=== PATIENT | female | born 1990 | race Two or more races ===

== ENCOUNTER 2017-11-24 14:01 | Emergency (ER) | payer OTHER ==
--- NOTE | 2017-11-24 14:29 | PDOC ---
Rapid Medical Evaluation Medical Evaluation: 11/24/17 14:26 I have performed a brief in-person evaluation of this patient. The patient presents with a chief complaint of: (s/p 1 spon AB) @ 8 weeks w/ n/v and weakness since yesterday. No abd pain or vag bleed Pertinent physical exam findings:Stable and in NAD w/ stable vitals I have ordered the following:nothing (as no LIVESTOCK CARETAKER/tech at triage) The patient will proceed to the ED for further evaluation. 11/24/17 14:31
[2017-11-24 14:33] VITALS: BP 127/63; PULSE 61; TEMP 98.2; BMI 20.8
[2017-11-24] MEDS ORDERED: SODIUM CHLORIDE 0.9% 500 ML INFUS.BAG IV ONE (15:06)
[2017-11-24] MEDS ORDERED: ONDANSETRON 4 MG/2 ML VIAL IVPUSH ONE (15:10)
[2017-11-24] MEDS ORDERED: ONDANSETRON 4 MG/2 ML VIAL ONE (15:36)
[2017-11-24 15:47] LABS: BASO % 0.4 % (0-2.0); EOS % 2.6 % (0-4.5); HEMATOCRIT 38.6 % (32.4-45.2); HEMOGLOBIN 12.8 GM/dL (10.7-15.3); LYMPH % 11.2 % (8-40); MCH 27.5 pg (25.7-33.7); MCHC 33.2 g/dl (32.0-36.0); MEAN CELL VOLUME 82.8 fl (80-96); MEAN PLT VOLUME 9.5 fl (7.5-11.1); MONO % 5.4 % (3.8-10.2); NEUT % 80.4 % (42.8-82.8); RBC 4.66 M/mm3 (3.60-5.2); RDW 13.5 % (11.6-15.6); WHITE BLOOD COUNT 12.5 K/mm3 (4.0-10.0)
[2017-11-24 16:00] LABS: URINE APPEARANCE SLCLOUDY; URINE BILIRUBIN NEGATIVE (NEGATIVE); URINE BLOOD NEGATIVE (NEGATIVE); URINE COLOR YELLOW; URINE GLUCOSE (UA) NEGATIVE (NEGATIVE); URINE KETONE 1+ (NEGATIVE); URINE LEUK ESTERASE TRACE (NEGATIVE); URINE NITRITE NEGATIVE (NEGATIVE)
[2017-11-24 16:03] LABS: URINE PROTEIN 1+ (NEGATIVE)
[2017-11-24 16:05] LABS: EPI CELLS MODERATE /HPF (FEW); URINE MUCUS MANY
[2017-11-24 16:12] LABS: ALBUMIN 3.5 g/dl (3.4-5.0); ANION GAP 11 (8-16); BILIRUBIN,TOTAL 0.4 mg/dL (0.2-1.0); BLOOD UREA NITROGEN 9 mg/dL (7-18); CHLORIDE 105 mmol/L (98-107); CO2 22 mmol/L (21-32); CREATININE 0.6 mg/dL (0.55-1.02); GLUCOSE,RANDOM 77 mg/dL (74-106); POTASSIUM 4.2 mmol/L (3.5-5.1); SGOT/AST 14 U/L (15-37); SGPT/ALT 27 U/L (12-78); SODIUM 138 mmol/L (136-145); TOT PROT 6.9 g/dl (6.4-8.2)
--- NOTE | 2017-11-24 16:21 | PDOC ---
History of Present Illness - General History Source: Patient Exam Limitations: No Limitations - History of Present Illness Initial Comments: 11/24/17 16:22 The patient is a 27 year old female A1 who is 8 weeks with a significant PMH of asthma who presents to the emergency department with abdominal discomfort, vomiting and generalized weakness beginning approximately yesterday morning. The patient reports being nauseous throughout her and receiving anti-nausea medication and blood work at her SHOE STAINER this past Monday, which she took one dose of that day. She reports receiving a call on Monday morning from the OB office stating that her platelets were low, after which the patient decided to stop her anti-nausea medication. She reports 4 episodes of non-bloody, non-bilious vomiting yesterday and 1 episode today. She reports calling her nurse at the OB office this morning who recommended she present to the ED. She denies any vaginal discharge or bleeding. She denies dysuria or hematuria. The patient denies chest pain, shortness of breath, headache and dizziness. Denies fever, chills, diarrhea and constipation. Denies urinary frequency or urgency. Allergies: NKA Past surgical history: None reported. Social history: No reported cigarette, alcohol, or drug use. PCP: None reported. <Raffi Umanzor - Last Filed: 11/24/17 16:21> <Zhanna Palomo - Last Filed: 11/25/17 08:51> - General Chief Complaint: Nausea/Vomiting Stated Complaint: NAUSEA/VOMITING Time Seen by Provider: 11/24/17 14:29 Past History <Raffi Umanzor - Last Filed: 11/24/17 16:21> - Past Medical History Asthma: Yes CVA: No COPD: No DVT: No - Immunization History Immunization Up to Date: Yes - Suicide/Smoking/Psychosocial Hx Smoking History: Never smoked Have you smoked in the past 12 months: No Information on smoking cessation initiated: No Hx Alcohol Use: No Drug/Substance Use Hx: No Substance Use Type: None <Zhanna Palomo - Last Filed: 11/25/17 08:51> - Past Medical History Allergies/Adverse Reactions: Allergies Allergy/AdvReac Type Severity Reaction Status Date / Time No Known Allergies Allergy Verified 11/24/17 14:30 Home Medications: Ambulatory Orders Metoclopramide HCl [Metoclopramide HCl Odt] 5 mg PO BID PRN #20 tab.rapdis 11/24 Ondansetron HCl [Zofran] 4 mg PO BID PRN #30 tablet 11/24/17 Review of Systems - Review of Systems Able to Perform ROS?: Yes Comments:: 11/24/17 16:22 GENERAL/CONSTITUTIONAL: (+) Generalized weakness. No fever or chills. HEAD, EYES, EARS, NOSE AND THROAT: No change in vision. No ear pain or discharge. No sore throat. CARDIOVASCULAR: No chest pain or shortness of breath. RESPIRATORY: No cough, wheezing, or hemoptysis. GASTROINTESTINAL: (+) Nausea. (+) Vomiting. No diarrhea or constipation. GENITOURINARY: No dysuria, frequency, or change in urination. MUSCULOSKELETAL: No joint or muscle swelling or pain. No neck or back pain. SKIN: No rash NEUROLOGIC: No headache, vertigo, loss of consciousness, or change in strength/ sensation. ENDOCRINE: No increased thirst. No abnormal weight change. HEMATOLOGIC/LYMPHATIC: No anemia, easy bleeding, or history of blood clots. ALLERGIC/IMMUNOLOGIC: No hives or skin allergy. <Raffi Umanzor - Last Filed: 11/24/17 16:21> *Physical Exam - Vital Signs Last Vital Signs Temp Pulse Resp BP Pulse Ox 98.2 F 61 16 127/63 100 11/24/17 14:30 11/24/17 14:30 11/24/17 14:30 11/24/17 14:30 11/24/17 14:30 - Physical Exam Comments: 11/24/17 16:23 GENERAL: Awake, alert, and fully oriented, in no acute distress HEAD: No signs of trauma EYES: PERRLA, EOMI, sclera anicteric, conjunctiva clear ENT: Auricles normal inspection, hearing grossly normal, nares patent, oropharynx clear without exudates. Moist mucosa NECK: Normal ROM, supple, no lymphadenopathy, JVD, or masses LUNGS: Breath sounds equal, clear to auscultation bilaterally. No wheezes, and no crackles HEART: Regular rate and rhythm, normal S1 and S2, no murmurs, rubs or gallops ABDOMEN: Soft, nontender, normoactive bowel sounds. No guarding, no rebound. No masses EXTREMITIES: Normal range of motion, no edema. No clubbing or cyanosis. No cords, erythema, or tenderness NEUROLOGICAL: Cranial nerves II through XII grossly intact. Normal speech, normal gait SKIN: Warm, Dry, normal turgor, no rashes or lesions noted. <Raffi Umanzor - Last Filed: 11/24/17 16:21> - Vital Signs Last Vital Signs Temp Pulse Resp BP Pulse Ox 98.2 F 61 16 127/63 100 11/24/17 14:30 11/24/17 14:30 11/24/17 14:30 11/24/17 14:30 11/24/17 14:30 <Zhanna Palomo - Last Filed: 11/25/17 08:51> ED Treatment Course - LABORATORY CBC & Chemistry Diagram: 11/24/17 15:19 11/24/17 15:19 - ADDITIONAL ORDERS Additional order review: Laboratory Results 11/24/17 15:40 Urine Color Yellow Urine Appearance Slcloudy Urine pH 6.0 Ur Specific [place] 1.032 Urine Protein 1+ H Urine Glucose (UA) Negative Urine Ketones 1+ H Urine Blood Negative Urine Nitrite Negative Urine Bilirubin Negative Urine Urobilinogen 2.0 H Ur Leukocyte Esterase Trace Urine WBC (Auto) 5 Urine RBC (Auto) 1 Ur Epithelial Cells Moderate Urine Mucus Many - Medications Given in the ED: ED Medications Discontinued Medications Generic Name Dose Route Start Last Admin Trade Name Freq PRN Reason Stop Dose Admin Ondansetron HCl 4 mg 11/24/17 15:10 11/24/17 15:45 Zofran Injection IVPUSH 11/24/17 15:11 4 mg ONCE ONE Administration Sodium Chloride 1,000 ml 11/24/17 15:06 11/24/17 15:45 Normal Saline - IV 11/24/17 15:07 1,000 ml ONCE ONE Administration <Raffi Umanzor - Last Filed: 11/24/17 16:21> - LABORATORY CBC & Chemistry Diagram: 11/24/17 15:19 11/24/17 15:19 - ADDITIONAL ORDERS Additional order review: Laboratory Results 11/24/17 15:40 Urine Color Yellow Urine Appearance Slcloudy Urine pH 6.0 Ur Specific [place] 1.032 Urine Protein 1+ H Urine Glucose (UA) Negative Urine Ketones 1+ H Urine Blood Negative Urine Nitrite Negative Urine Bilirubin Negative Urine Urobilinogen 2.0 H Ur Leukocyte Esterase Trace Urine WBC (Auto) 5 Urine RBC (Auto) 1 Ur Epithelial Cells Moderate Urine Mucus Many - Medications Given in the ED: ED Medications Discontinued Medications Generic Name Dose Route Start Last Admin Trade Name Freq PRN Reason Stop Dose Admin Ondansetron HCl 4 mg 11/24/17 15:10 11/24/17 15:45 Zofran Injection IVPUSH 11/24/17 15:11 4 mg ONCE ONE Administration Sodium Chloride 1,000 ml 11/24/17 15:06 11/24/17 15:45 Normal Saline - IV 11/24/17 15:07 1,000 ml ONCE ONE Administration <Zhanna Palomo - Last Filed: 11/25/17 08:51> Medical Decision Making - Medical Decision Making 11/25/17 08:45 Pt presents to the ED complaining of nausea and vomiting that are most consistent with morning sickness. Denies abdominal pain or vaginal bleeding. Will check labs and give IV hydration and nausea control and reassess. 11/25/17 08:50 11/25/17 08:51 <Zhanna Palomo - Last Filed: 11/25/17 08:51> *DC/Admit/Observation/Transfer - Attestations Scribe Attestion: 11/24/17 16:23 Documentation prepared by Raffi Umanzor, acting as phlebotomist medical lab assistant for Zhanna Palomo MD. <Raffi Umanzor - Last Filed: 11/24/17 16:21> - Discharge Dispostion Admit: No <Zhanna Palomo - Last Filed: 11/25/17 08:51> Diagnosis at time of Disposition: Hyperemesis arising during - Discharge Dispostion Disposition: HOME Condition at time of disposition: Stable - Prescriptions Prescriptions: Metoclopramide HCl [Metoclopramide HCl Odt] 5 mg PO BID PRN #20 tab.rapdis PRN Reason: nausea, vomiting Ondansetron HCl [Zofran] 4 mg PO BID PRN #30 tablet PRN Reason: Nausea - Patient Instructions Printed Discharge Instructions: DI for Hyperemesis Gravidarum, DI for Nausea - - Adult Additional Instructions: Ms Tristan Thank you for coming in to the ER today Please take Reglan as prescribed for nausea I will prescribed Zofran, but please check with your gourmet coffee attendant regarding whether you can start taking this Return to the ER for any other concerns or complaints - Post Discharge Activity Forms/Work/School Notes: Back to Work
[2017-11-24 16:28] LABS: ALK PHOS 82 U/L (45-117)
[2017-11-24 17:03] LABS: PLATELET ESTIMATE ADEQUATE
--- NOTE | 2017-11-24 18:27 | PDOC ---
*Physical Exam - Vital Signs Last Vital Signs Temp Pulse Resp BP Pulse Ox 98.2 F 61 16 127/63 100 11/24/17 14:30 11/24/17 14:30 11/24/17 14:30 11/24/17 14:30 11/24/17 14:30 ED Treatment Course - LABORATORY CBC & Chemistry Diagram: 11/24/17 15:19 11/24/17 15:19 - ADDITIONAL ORDERS Additional order review: Laboratory Results 11/24/17 11/24/17 15:40 15:19 Sodium 138 Potassium 4.2 Chloride 105 Carbon Dioxide 22 Anion Gap 11 BUN 9 Creatinine 0.6 Creat Clearance w eGFR > 60 Random Glucose 77 Calcium 9.0 Total Bilirubin 0.4 AST 14 L ALT 27 Alkaline Phosphatase 82 Total Protein 6.9 Albumin 3.5 Beta HCG, Quant 116315.0 Urine Color Yellow Urine Appearance Slcloudy Urine pH 6.0 Ur Specific [place] 1.032 Urine Protein 1+ H Urine Glucose (UA) Negative Urine Ketones 1+ H Urine Blood Negative Urine Nitrite Negative Urine Bilirubin Negative Urine Urobilinogen 2.0 H Ur Leukocyte Esterase Trace Urine WBC (Auto) 5 Urine RBC (Auto) 1 Ur Epithelial Cells Moderate Urine Mucus Many 11/24/17 15:19 RBC 4.66 MCV 82.8 MCHC 33.2 RDW 13.5 MPV 9.5 Neutrophils % 80.4 Lymphocytes % 11.2 Monocytes % 5.4 Eosinophils % 2.6 Basophils % 0.4 - Medications Given in the ED: ED Medications Discontinued Medications Generic Name Dose Route Start Last Admin Trade Name Freq PRN Reason Stop Dose Admin Ondansetron HCl 4 mg 11/24/17 15:10 11/24/17 15:45 Zofran Injection IVPUSH 11/24/17 15:11 4 mg ONCE ONE Administration Sodium Chloride 1,000 ml 11/24/17 15:06 11/24/17 15:45 Normal Saline - IV 11/24/17 15:07 1,000 ml ONCE ONE Administration Medical Decision Making - Medical Decision Making 11/24/17 18:19 27 yo F signed out to me pending platelet count Pt tells me that she is being followed by a hemetologist She has had several blood samples which patient states were significant for platelet clumping She is getting several additional tests Pt was treated with Zofran with improved nausea I have had a conversation with her regarding her anti emetic Pt does not want to continue Diclegis I have explained some of the concernes with Zofran I will prescribe Zofran and Reglan pt will contact her software applications developer regarding which she should take Clinical impression: hyperemesis, initial presentation *DC/Admit/Observation/Transfer Diagnosis at time of Disposition: Hyperemesis arising during - Discharge Dispostion Disposition: HOME Condition at time of disposition: Stable Admit: No - Referrals - Patient Instructions Printed Discharge Instructions: DI for Nausea -- Adult, DI for Hyperemesis Gravidarum Additional Instructions: Ms Tristan Thank you for coming in to the ER today Please take Reglan as prescribed for nausea I will prescribed Zofran, but please check with 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
== END 2017-11-24 19:04 | disposition home or self-care (01) ==
LOC: JER 14:01
PROC: 3E033GC Introduction of Other Therapeutic Substance into Peripheral Vein, Percutaneous Approach (ICD-10-PCS; principal; 2017-11-24)
PROC: 3E0337Z Introduction of Electrolytic and Water Balance Substance into Peripheral Vein, Percutaneous Approach (ICD-10-PCS; 2017-11-24)
DX: O26.891 Other specified pregnancy related conditions, first trimester (principal); Z3A.08 8 weeks gestation of pregnancy; O21.0 Mild hyperemesis gravidarum
CPT/HCPCS: 36415; 80053; 81003; 81015; 84702; 85025; 96361; 96374; 99282-25

== ENCOUNTER 2018-06-15 21:45 | Inpatient (IN) | payer BC, OTHER ==
[2018-06-16 02:42] LABS: BASO % 0.5 % (0-2.0); EOS % 3.1 % (0-4.5); HEMATOCRIT 39.8 % (32.4-45.2); HEMOGLOBIN 13.1 GM/dL (10.7-15.3); LYMPH % 13.2 % (8-40); MCH 27.9 pg (25.7-33.7); MEAN CELL VOLUME 84.8 fl (80-96); MONO % 5.5 % (3.8-10.2); NEUT % 77.7 % (42.8-82.8); RDW 14.5 % (11.6-15.6); WHITE BLOOD COUNT 11.3 K/mm3 (4.0-10.0)
[2018-06-16 03:01] VITALS: BMI 22.6
[2018-06-16 03:03] LABS: INR 0.91 (0.83-1.09); PROTHROMBIN TIME (PATIENT) 10.3 SEC (9.7-13.0)
[2018-06-16 03:04] LABS: ANION GAP 8 MMOL/L (8-16); BLOOD UREA NITROGEN 15 mg/dL (7-18); CALCIUM 8.7 mg/dL (8.5-10.1); CHLORIDE 108 mmol/L (98-107); CO2 22 mmol/L (21-32); CREATININE 0.6 mg/dL (0.55-1.3); GLUCOSE,RANDOM 75 mg/dL (74-106); POTASSIUM 3.8 mmol/L (3.5-5.1); SODIUM 138 mmol/L (136-145)
[2018-06-16 03:39] LABS: PLATELET ESTIMATE DECREASED
[2018-06-16] MEDS: DEXTROSE 5%-LACTATED RINGERS 1,000 ML IV SCH (04:40)
[2018-06-16] MEDS ORDERED: PROMETHAZINE HCL 25 MG/1 ML VIAL IVPB ONE (07:00)
[2018-06-16] MEDS ORDERED: BUTORPHANOL TARTRATE 1 MG/ML VIAL IVPB ONE ×2 (07:00→11:15)
[2018-06-16] MEDS ORDERED: OXYTOCIN 20 UNITS in 0.9% NS 20 UNIT/1,000 ML INFUS.BAG IV ONE (07:24)
[2018-06-16] MEDS ORDERED: LIDOCAINE HCL 1% PRESERVATIVE FREE - 30ML VIAL ONE (07:24)
--- NOTE | 2018-06-16 08:07 | HP ---
Past Medical History - Primary Care Physician PCP:: Casper Sal - Admission Chief Complaint: 27yo P1 with at EGA 37 5/7wk admitted in spontaneous labor. 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: Alzheimer's, CVA, Dementia, Migraine, Multiple Sclerosis, Peripheral Neuropathy, Parkinson's, Seizure, Syncope, TIA, Vertigo, Other Cardiovascular: No: AFIB, Aneurysm, Aortic Insufficiency, Aortic Stenosis, CAD, CHF, Deep Vein Thrombosis, HTN, Hyperlipdemia, NC, Mitral Insufficiency, Mitral Stenosis, Murmur, Pulmonary Hypertension, Other Pulmonary: Yes: Asthma Gastrointestinal: No: Ascites, Cancer, Constipation, Crohn's Disease, Diverticulitis, Diverticulosis, Esophageal Varices, Gastritis, GERD, GI Bleed, Hemorrhoids, Hiatal Hernia, Inflamatory Bowel Disease, Irritable Bowel Disease, Pancreatitis, Peptic Ulcer Disease, Ulcerative Colitis, Other Hepatobiliary: No: Cirrhosis, Cholelithiasis, Cholecystitis, Choledocholithiasis , Hepatitis A, Hepatitis B, Hepatitis C, Other Renal/: No: Renal Failure, Renal Inusuff, BPH, Cancer, Hematuria, Hemodialysis , Neurogenic Bladder, Renal Calculi, UTI, Other Reproductive: No: Ectopic , Endometriosis, Fibroids, PID, Polycystic Ovary Syndrome, Postmenopausal, Other ...: 2 ...Para: 1 ...Term: 1 ...: 0 ...Spon : 0 ...Induced : 0 ...Multiple Gestation: 0 ... Weeks Gestation by Dates: 37.5 ...EDC by Dates: 07/02/18 Heme/Onc: No: Anemia, B12 Deficiency, Bleeding Disorder, Cancer, Current Chemotherapy, Current Radiation Therapy, Hemochromatosis, Hypercoaguable State, Myeloproliferative Synd, Sickle Cell Disease, Sickle Cell Trait, Thrombocytopenia, Other Infectious Disease: No: AIDS, C-Diff, Herpes Zoster, HIV, MRSA, STD's, Tuberculosis, VREF, Other Psych: No: Addictions, Anxiety, Bipolar, Depression, Panic, Psychosis, Schizophrenia, Other Musculoskeletal: No: Bursitis, Chronic low back pain, Hemiparesis, Hemiplegia, Osteoarthritis, Paraplegia, Other Rheumatology: No: Fibromyalgia, Gout, Lupus, Rheumatoid Arthritis, Sarcoidosis, Vasculitis, Other ENT: No: Allergic Rhinitis, Sinusitis, Other Endocrine: No: Archie's Disease, [place]'s Disease, Diabetes Insipidus, Diabetes Mellitus, Hyperparathyroidism, Hyperthyroidism, Hypothyroidism, Osteopenia, SIADH, Other Dermatology: No: Basal Cell, Cellulitis, Eczema, Melanoma, Psoriasis, Squamous Cell, Other - Past Surgical History Past Surgical History: Yes: None Hx Myomectomy: No Hx Transabdominal Cerclage: No - Smoking History Smoking history: Never smoked Have you smoked in the past 12 months: No - Alcohol/Substance Use Hx Alcohol Use: No History of Substance Use: reports: None - Social History Usual Living Arrangement: Yes: With Spouse, With Child ADL: Independent History of Recent Travel: No Home Medications - Allergies Allergies/Adverse Reactions: Allergies Allergy/AdvReac Type Severity Reaction Status Date / Time No Known Allergies Allergy Verified 06/15/18 23:43 - Home Medications Home Medications: Ambulatory Orders Iron 1 tab PO DAILY 06/15/18 Pnv 29-1 Tablet 1 tab PO DAILY 06/15/18 Family Disease History - Family Disease History Family History: Unremarkable Review of Systems - Review of Systems Constitutional: reports: Other (labor) Eyes: reports: No Symptoms HENT: reports: No Symptoms Neck: reports: No Symptoms Cardiovascular: reports: No Symptoms Respiratory: reports: No Symptoms Gastrointestinal: reports: No Symptoms Genitourinary: reports: No Symptoms Breasts: reports: No Symptoms Reported Musculoskeletal: reports: No Symptoms Integumentary: reports: No Symptoms Neurological: reports: No Symptoms Endocrine: reports: No Symptoms Hematology/Lymphatic: reports: No Symptoms Psychiatric: reports: No Symptoms Pain Intensity: 8 Physical Exam - Maternity Vital Signs: Vital Signs Temperature 97.8 F 06/16/18 06:00 Pulse Rate 68 06/16/18 07:00 Respiratory Rate 20 06/16/18 07:00 Blood Pressure 127/71 06/16/18 07:00 O2 Sat by Pulse Oximetry (%) Constitutional: Yes: Well Nourished, No Distress, Calm Eyes: Yes: WNL, Conjunctiva Clear HENT: Yes: WNL, Atraumatic, Normocephalic Neck: Yes: WNL, Supple, Trachea Midline Cardiovascular: Yes: WNL, Regular Rate and Rhythm Lungs: Clear to auscultation, Normal air movement - Abdominal Exam/OB Fundal Height: 37 Number of Fetuses: Single Presentation: Vertex Contractions: Yes Regularity: Regular Intensity: Mod/Strong Monitor Mode: External Heart Rate (range): 120 Heart Rate Location: Midline Category: I Accelerations: Uniform Decelerations: None - Vaginal Exam/OB Vaginal Bleediing: No Speculum Exam: Yes Dilatation (cm): 8 Effacement (%): 100 Amniotic Membrane Status: Bulging Presentation: Vertex/Position Station: 0 - Physical Exam Musculoskeletal: Yes: WNL Extremities: Yes: WNL Edema: No Integumentary: Yes: WNL Deep Tendon Reflex Grade: Normal +2 ...Motor Strength: WNL Psychiatric: Yes: WNL, Alert, Oriented - Labs Lab Results: CBC, BMP 06/16/18 02:15 06/16/18 02:15 Hemorrhage Risk Assessment - Risk Factors Medium Risk Factors: Yes: None High Risk Factors: Yes: None Risk Score: 1 Risk Level: Medium Risk Assessment/Plan 27yo P1 with at EGA 37 5/7wk admitted in spontaneous labor. Fetus with Category I tracing. Labor progressed in active phase. Anticipate .
[2018-06-16] MEDS ORDERED: OXYTOCIN 10 UNITS/ML VIAL ONE (08:08)
[2018-06-16] MEDS ORDERED: TUBERCULIN PPD 5 TU/0.1ML SYRINGE (IN PATIENT USE ONLY) ID ONE (10:00)
[2018-06-16] MEDS ORDERED: BUTORPHANOL TARTRATE 1 MG/ML VIAL ONE ×2 (11:14)
[2018-06-16] MEDS: OXYTOCIN 20 UNITS in 0.9% NS 20 UNIT/1,000 ML INFUS.BAG IV SCH (11:25)
[2018-06-16] MEDS ORDERED: BISACODYL 10 MG SUPP.RECT RC PRN (11:39)
[2018-06-16] MEDS ORDERED: BENZOCAINE 28 GM HEMORRHOIDAL OINTMENT TP PRN (11:39)
[2018-06-16] MEDS ORDERED: WITCH HAZEL 50% (TUCKS) 40 PAD/JAR PAD TP PRN (11:39)
[2018-06-16] MEDS ORDERED: METHYLERGONOVINE MALEATE 0.2 MG/1 ML AMP IM PRN (11:39)
[2018-06-16] MEDS ORDERED: BENZOCAINE 20% 57 GM BOTTLE TP PRN (11:39)
--- NOTE | 2018-06-16 11:44 | PN ---
Delivery - Delivery Vaginal Delivery: No Problems, Spontaneous Episiotomy/Laceration: None EBL (cc): 500 Delivery, Single - Stages of Labor Date 1st Stage Initiatied: 06/15/18 Time 1st Stage Initiated: 22:00 Date 2nd Stage Initiated: 06/16/18 Time 2nd Stage Initiated: 10:30 Date of Delivery: 06/16/18 Time of Delivery: 10:43 Date Placenta Delivered: 06/16/18 Time Placenta Delivered: 11:25 Placenta: Yes: Manual Removal - Condition of Upper Leather Sorter/Liquid Fertilizer Servicer Present: No Gender: Female Weight: 2.722 kg Position: Left, OA Total Hours ROM (Hrs/Mins): 2H15M - 1 Minute Total Score: 9 5 Minutes Total Score: 9 - Feeding Plan Initial Plan: Elected not to breastfeed exclusively throughout hospitalization Remarks - Remarks Remarks: Uncomplicated Manual removal of placenta done w/o complications. Uterine cavity examined and no RPOC noted.
[2018-06-16] MEDS: IBUPROFEN 600 MG TABLET (FP) PO PRN ×2 (12:27→16:20)
[2018-06-16] MEDS ORDERED: IBUPROFEN 600 MG TABLET (FP) PO ONE (12:30)
[2018-06-16] MEDS: ACETAMINOPHEN 325 MG TABLET (FP) PO PRN (16:21)
[2018-06-17] MEDS: ACETAMINOPHEN 325 MG TABLET (FP) PO PRN ×3 (04:40→20:00)
[2018-06-17] MEDS: IBUPROFEN 600 MG TABLET (FP) PO PRN ×3 (04:40→20:00)
[2018-06-17 08:02] LABS: BASO % 0.3 % (0-2.0); EOS % 1.7 % (0-4.5); HEMOGLOBIN 12.1 GM/dL (10.7-15.3); LYMPH % 8.3 % (8-40); MCH 27.7 pg (25.7-33.7); MCHC 32.6 g/dl (32.0-36.0); MEAN CELL VOLUME 84.9 fl (80-96); MEAN PLT VOLUME 9.3 fl (7.5-11.1); MONO % 4.1 % (3.8-10.2); NEUT % 85.6 % (42.8-82.8); RBC 4.36 M/mm3 (3.60-5.2); RDW 14.5 % (11.6-15.6); WHITE BLOOD COUNT 13.8 K/mm3 (4.0-10.0)
[2018-06-17 09:05] LABS: PLATELET ESTIMATE ADEQUATE
[2018-06-17] MEDS: PRENATAL VITAMINS W/ FOLIC ACID TABLET (FP) PO SCH (09:49)
[2018-06-17] MEDS ORDERED: DIPHTH,PERTUSS(ACELL),TET 0.5 ML DISP.SYRIN IM ONE (10:00)
--- NOTE | 2018-06-17 10:48 | PN ---
Post Progress Note - Subjective Subjective: No complaints Post Day: 1 Type of Delivery: Vital Signs: Vital Signs Temperature 98.6 F 06/17/18 06:00 Pulse Rate 68 06/17/18 06:00 Respiratory Rate 18 06/17/18 06:00 Blood Pressure 118/58 L 06/17/18 06:00 O2 Sat by Pulse Oximetry (%) Breast Exam: Yes: Soft Uterus: Yes: Fundus Firm, Fundus below umbilicus, Non-tender Abdomen/GI: Yes: Abdomen soft, Passing flatus, Tolerating PO Lochia: Yes: Rubra Lochia, amount: Small Extremities: Yes: Calves non-tender Perineum: Yes: Intact Activity: Ambulating - Labs Labs: CBC WBC 13.8 K/mm3 (4.0-10.0) H 06/17/18 07:20 RBC 4.36 M/mm3 (3.60-5.2) 06/17/18 07:20 Hgb 12.1 GM/dL (10.7-15.3) 06/17/18 07:20 Hct 37.0 % (32.4-45.2) 06/17/18 07:20 MCV 84.9 fl (80-96) 06/17/18 07:20 MCH 27.7 pg (25.7-33.7) 06/17/18 07:20 MCHC 32.6 g/dl (32.0-36.0) 06/17/18 07:20 RDW 14.5 % (11.6-15.6) 06/17/18 07:20 Plt Count No Result Required. 06/17/18 07:20 MPV 9.3 fl (7.5-11.1) 06/17/18 07:20 Absolute Neuts (auto) 11.8 K/mm3 (1.5-8.0) H 06/17/18 07:20 Neutrophils % 85.6 % (42.8-82.8) H 06/17/18 07:20 Lymphocytes % 8.3 % (8-40) D 06/17/18 07:20 Monocytes % 4.1 % (3.8-10.2) 06/17/18 07:20 Eosinophils % 1.7 % (0-4.5) 06/17/18 07:20 Basophils % 0.3 % (0-2.0) 06/17/18 07:20 Nucleated RBC % 0 % (0-0) 06/17/18 07:20 Platelet Estimate Adequate 06/17/18 07:20 Plt Clumps, Citrate 142.0 K/MM3 (134-434) 06/16/18 02:15 Platelet Comment Mod plt clumping 06/17/18 07:20 Assessment/Plan 29yo P2 s/p , doing well stable, afebrile. care instructions reviewed. Continue routine care. Ambulation encouraged Discharge instruction reviewed.
--- NOTE | 2018-06-17 10:50 | DS ---
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 Vital Signs: Vital Signs Temperature 98.6 F 06/17/18 06:00 Pulse Rate 68 06/17/18 06:00 Respiratory Rate 18 06/17/18 06:00 Blood Pressure 118/58 L 06/17/18 06:00 O2 Sat by Pulse Oximetry (%) Constitutional: Yes: Well Nourished, No Distress, Calm Eyes: Yes: WNL, Conjunctiva Clear HENT: Yes: WNL, Atraumatic, Normocephalic Neck: Yes: WNL, Supple, Trachea Midline Cardiovascular: Yes: WNL, Regular Rate and Rhythm Respiratory: Yes: WNL, Regular, CTA Bilaterally Gastrointestinal: Yes: WNL, Normal Bowel Sounds, Soft ...Rectal Exam: Yes: Deferred Renal/: Yes: WNL Internal Exam Deferred: Yes ....Post : Yes: Uterus firm, Uterus non-tender, Slight lochia rubra Musculoskeletal: Yes: WNL Extremities: Yes: WNL Edema: No Integumentary: Yes: WNL Neurological: Yes: WNL, Alert, Oriented ...Motor Strength: WNL Psychiatric: Yes: WNL, Alert, Oriented Labs: CBC, BMP 06/17/18 07:20 06/16/18 02:15 Delivery - Delivery Vaginal Delivery: No Problems, Spontaneous Episiotomy/Laceration: None EBL (cc): 500 Delivery, Single - Stages of Labor Date 1st Stage Initiatied: 06/15/18 Time 1st Stage Initiated: 22:00 Date 2nd Stage Initiated: 06/16/18 Time 2nd Stage Initiated: 10:30 Date of Delivery: 06/16/18 Time of Delivery: 10:43 Time Placenta Delivered: 11:25 Placenta: Yes: Manual Removal - Condition of Glass Etcher/Station Engineer Main Line Present: No Gender: Female Weight: 2.722 kg Position: Left, OA Total Hours ROM (Hrs/Mins): 2H15M - 1 Minute Total Score: 9 5 Minutes Total Score: 9 - Feeding Plan Initial Plan: Elected not to breastfeed exclusively throughout hospitalization Discharge Summary Reason For Visit: LABOR Spont labor Procedures: Principal: Hospital Course: Normal recovery Condition: Good - Instructions Diet, Activity, Other Instructions: Physical activity Resume your normal everyday activity as tolerated no heavy lifting or exercise until seen by your surgeon. You may walk unlimited magen of and climb stairs. You may resume driving the car when you feel safe and comfortable behind the wheel. No sexual activity as instructed. Wound care If you have a bandage, leave it on, and keep dry for 48-72 hours. After that time discard the outer bandage. If they are tapes on the skin under the out of bandage leave them in place. They will peel off in the next 7 to 10 days. Do Not Peel them off. You may shower the day after surgery. If there are tapes present on the skin, you may shower over them. Diet There are no dietary restrictions. Eat healthy, high-fiber foods. Drink 6 to 8 glasses of liquid each day. This will assist in keeping your bowels are regular. Pain management You may take Tylenol or acetaminophen or Ibuprofen (for example, Motrin, Advil etc.) from my pain prescription medication is ordered should be taken as prescribed for moderate to severe pain. Call MD for any of the following: Severe pain not relieved by medication Fever of 101 or higher Excessive bleeding or drainage on dressing Inability to urinate Referrals: Casper Sal MD [Staff Physician] - Disposition: HOME - Home Medications Comprehensive Discharge Medication List: Ambulatory Orders Iron 1 tab PO DAILY 06/15/18 Pnv 29-1 Tablet 1 tab PO DAILY 06/15/18
[2018-06-17] MEDS: DEXTROSE 5%-LACTATED RINGERS 1,000 ML IV SCH (11:40)
[2018-06-17] MEDS: OXYTOCIN 20 UNITS in 0.9% NS 20 UNIT/1,000 ML INFUS.BAG IV SCH (14:58)
[2018-06-17] MEDS ORDERED: SENNOSIDES/DOCUSATE COMBO (SENNA PLUS) TABLET (UD) PO PRN (22:00)
[2018-06-18] MEDS: DEXTROSE 5%-LACTATED RINGERS 1,000 ML IV SCH (01:33)
[2018-06-18] MEDS: IBUPROFEN 600 MG TABLET (FP) PO PRN (07:35)
[2018-06-18] MEDS: ACETAMINOPHEN 325 MG TABLET (FP) PO PRN (07:35)
[2018-06-18 08:45] VITALS: BP 134/75; PULSE 60; TEMP 97.9
[2018-06-18] MEDS: PRENATAL VITAMINS W/ FOLIC ACID TABLET (FP) PO SCH (09:35)
--- NOTE | 2018-06-18 12:39 | PN ---
Post Progress Note - Subjective Subjective: No complaints Post Day: 2 Type of Delivery: Vital Signs: Vital Signs Temperature 97.9 F 06/18/18 07:25 Pulse Rate 60 06/18/18 07:25 Respiratory Rate 20 06/18/18 07:25 Blood Pressure 134/75 06/18/18 07:25 O2 Sat by Pulse Oximetry (%) Breast Exam: Yes: Soft Uterus: Yes: Fundus Firm, Fundus below umbilicus, Non-tender Abdomen/GI: Yes: Abdomen soft, Passing flatus, Tolerating PO Lochia: Yes: Rubra Lochia, amount: Small Extremities: Yes: Calves non-tender Perineum: Yes: Intact Activity: Ambulating - Labs Labs: CBC WBC 13.8 K/mm3 (4.0-10.0) H 06/17/18 07:20 RBC 4.36 M/mm3 (3.60-5.2) 06/17/18 07:20 Hgb 12.1 GM/dL (10.7-15.3) 06/17/18 07:20 Hct 37.0 % (32.4-45.2) 06/17/18 07:20 MCV 84.9 fl (80-96) 06/17/18 07:20 MCH 27.7 pg (25.7-33.7) 06/17/18 07:20 MCHC 32.6 g/dl (32.0-36.0) 06/17/18 07:20 RDW 14.5 % (11.6-15.6) 06/17/18 07:20 Plt Count No Result Required. 06/17/18 07:20 MPV 9.3 fl (7.5-11.1) 06/17/18 07:20 Absolute Neuts (auto) 11.8 K/mm3 (1.5-8.0) H 06/17/18 07:20 Neutrophils % 85.6 % (42.8-82.8) H 06/17/18 07:20 Lymphocytes % 8.3 % (8-40) D 06/17/18 07:20 Monocytes % 4.1 % (3.8-10.2) 06/17/18 07:20 Eosinophils % 1.7 % (0-4.5) 06/17/18 07:20 Basophils % 0.3 % (0-2.0) 06/17/18 07:20 Nucleated RBC % 0 % (0-0) 06/17/18 07:20 Platelet Estimate Adequate 06/17/18 07:20 Plt Clumps, Citrate 142.0 K/MM3 (134-434) 06/16/18 02:15 Platelet Comment Mod plt clumping 06/17/18 07:20 Assessment/Plan 29yo P2 s/p , doing well stable, afebrile. care instructions reviewed. Continue routine care. Ambulation encouraged Discharge instruction reviewed.
--- NOTE | 2018-06-20 14:39 | DS ---
Physical Exam-DEXTRINE MIXER Vital Signs: Vital Signs Temperature 97.9 F 06/18/18 07:25 Pulse Rate 60 06/18/18 07:25 Respiratory Rate 20 06/18/18 07:25 Blood Pressure 134/75 06/18/18 07:25 O2 Sat by Pulse Oximetry (%) Constitutional: Yes: Well Nourished, No Distress, Calm Eyes: Yes: WNL, Conjunctiva Clear HENT: Yes: WNL, Atraumatic, Normocephalic Neck: Yes: WNL, Supple, Trachea Midline Cardiovascular: Yes: WNL, Regular Rate and Rhythm Respiratory: Yes: WNL, Regular, CTA Bilaterally Gastrointestinal: Yes: WNL, Normal Bowel Sounds, Soft ...Rectal Exam: Yes: Deferred Renal/: Yes: WNL Internal Exam Deferred: Yes ....Post : Yes: Uterus firm, Uterus non-tender, Slight lochia rubra Breast(s): Yes: WNL Musculoskeletal: Yes: WNL Extremities: Yes: WNL Integumentary: Yes: WNL Neurological: Yes: WNL, Alert, Oriented ...Motor Strength: WNL Psychiatric: Yes: WNL, Alert, Oriented Labs: CBC, BMP 06/17/18 07:20 06/16/18 02:15 Delivery - Delivery Vaginal Delivery: No Problems, Spontaneous Episiotomy/Laceration: None EBL (cc): 500 Delivery, Single - Stages of Labor Date 1st Stage Initiatied: 06/15/18 Time 1st Stage Initiated: 22:00 Date 2nd Stage Initiated: 06/16/18 Time 2nd Stage Initiated: 10:30 Date of Delivery: 06/16/18 Time of Delivery: 10:43 Date Placenta Delivered: 06/16/18 Time Placenta Delivered: 11:25 Placenta: Yes: Manual Removal - Condition of Manager Protein/Online Merchandising Specialist Present: No Infant Gender: Female Weight: 2.722 kg Position: Left, OA Total Hours ROM (Hrs/Mins): 2H15M - 1 Minute Total Score: 9 5 Minutes Total Score: 9 - Feeding Plan Initial Plan: Elected not to breastfeed exclusively throughout hospitalization Discharge Summary Reason For Visit: LABOR Labor at term Procedures: Principal: Hospital Course: Normal recovery Condition: Good - Instructions Diet, Activity, Other Instructions: Physical activity Resume your normal everyday activity as tolerated no heavy lifting or exercise until seen by your surgeon. You may walk unlimited magen of and climb stairs. You may resume driving the car when you feel safe and comfortable behind the wheel. No sexual activity as instructed. Wound care If you have a bandage, leave it on, and keep dry for 48-72 hours. After that time discard the outer bandage. If they are tapes on the skin under the out of bandage leave them in place. They will peel off in the next 7 to 10 days. Do Not Peel them off. You may shower the day after surgery. If there are tapes present on the skin, you may shower over them. Diet There are no dietary restrictions. Eat healthy, high-fiber foods. Drink 6 to 8 glasses of liquid each day. This will assist in keeping your bowels are regular. Pain management You may take Tylenol or acetaminophen or Ibuprofen (for example, Motrin, Advil etc.) from my pain prescription medication is ordered should be taken as prescribed for moderate to severe pain. Call MD for any of the following: Severe pain not relieved by medication Fever of 101 or higher Excessive bleeding or drainage on dressing Inability to urinate Call Dr. Sal and make appt. to be seen in 4 to 5 weeks. Referrals: Casper Sal MD [Staff Physician] - Disposition: HOME - Home Medications Comprehensive Discharge Medication List: Ambulatory Orders Iron 1 tab PO DAILY 06/15/18 Pnv 29-1 Tablet 1 tab PO DAILY 06/15/18
== END 2018-06-18 17:45 | disposition home or self-care (01) | DRG 767 ==
LOC: JDEL 21:45 → JLDR 06-16 00:45 → J3W 06-16 14:10
PROVIDERS: ADMIT Obstetrics & Gynecology; ATTEND Obstetrics & Gynecology
PROC: 10E0XZZ Delivery of Products of Conception, External Approach (ICD-10-PCS; principal; 2018-06-16)
PROC: 10D17Z9 Manual Extraction of Products of Conception, Retained, Via Natural or Artificial Opening (ICD-10-PCS; 2018-06-16)
DX: O99.113 Other diseases of the blood and blood-forming organs and certain disorders involving the immune mechanism complicating pregnancy, third trimester (principal); D69.6 Thrombocytopenia, unspecified; O73.1 Retained portions of placenta and membranes, without hemorrhage; Z37.0 Single live birth; Z3A.37 37 weeks gestation of pregnancy
CPT/HCPCS: 36415; 59409; 80048; 85025; 85032; 85610; 85730; 86593; 86762; 86850; 86900; 86901; 87389; 90686; 90715; G0008